=== PATIENT | female | born 1970 | race Hispanic/Latino ===

== ENCOUNTER → 2019-11-09 | Day surgery (SDC) | payer MEDICARE, OTHER ==
[~2019-11-09] MED LIST: CALCIUM ACETAT667 M1 PO; CITALOPRAM HBR20 MG PO; CRESTOR10 MG PO; FENTANYL CITRATE/PF 100MCG/2 ML INJ ONE; FERROUS SULFAT325 M1 PO; FUROSEMIDE40 MG PO; GABAPENTIN300 MG PO; LEVOTHYROXINE50 MCG PO; LEVOTHYROXINE75 MCG PO; MIDAZOLAM HCL 2 MG/2 ML VIAL ONE; NOVOLOG MI100 UNIT/1 SC; PROPOFOL IV EMULSION 10 MG/ML 20 ML VIAL ONE; SODIUM CHLORIDE 0.9% 500ML 500 ML ONE; TRADJENTA5 MG PO
[2019-11-09 14:55] VITALS: BP 110/56
== END | disposition home or self-care (01) ==
LOC: OR 10:57
PROVIDERS: ATTEND Internal Medicine Gastroenterology
DX: K29.70 Gastritis, unspecified, without bleeding (principal); D12.8 Benign neoplasm of rectum; K29.80 Duodenitis without bleeding; K44.9 Diaphragmatic hernia without obstruction or gangrene; K64.8 Other hemorrhoids; D50.9 Iron deficiency anemia, unspecified; I10 Essential (primary) hypertension; E11.9 Type 2 diabetes mellitus without complications; E03.9 Hypothyroidism, unspecified; Z01.810 Encounter for preprocedural cardiovascular examination; Z01.812 Encounter for preprocedural laboratory examination; Z11.59 Encounter for screening for other viral diseases; Z79.4 Long term (current) use of insulin
CPT/HCPCS: 36415; 43239; 45384; 82948; 84132; 88305; 88312; 93005; J2250; J2704; J3010; J7040; U0002; 45378

== ENCOUNTER 2021-07-31 12:40 | Inpatient (IN) | payer MEDICARE, OTHER ==
[2021-07-31] VITALS (17 sets, daily range): BP systolic 65–148; BP diastolic 20–75
[~2021-07-31] VITALS: Ht 165.1 cm; Wt 130.2 kg
[~2021-07-31 12:40] MED LIST changes: -FENTANYL CITRATE/PF 100MCG/2 ML INJ ONE; -MIDAZOLAM HCL 2 MG/2 ML VIAL ONE; -PROPOFOL IV EMULSION 10 MG/ML 20 ML VIAL ONE; -SODIUM CHLORIDE 0.9% 500ML 500 ML ONE
[2021-07-31] MEDS ORDERED: SODIUM CHLORIDE 0.9% 1000ML 2,000 ML ONE (13:00)
[2021-07-31] MEDS ORDERED: SODIUM CHLORIDE 0.9% 1000ML 1,000 ML IV STA ×3 (13:15→14:17)
[2021-07-31] MEDS ORDERED: ONDANSETRON HCL INJ 2MG/ML 2ML 2 MG/ML VIAL IV STA (13:15)
[2021-07-31] MEDS ORDERED: ONDANSETRON HCL INJ 2MG/ML 2ML 2 MG/ML VIAL ONE (13:18)
[2021-07-31 14:08] LABS: ALBUMIN 3.4 g/dL (3.5-5.0); ALBUMIN/GLOBULIN RATIO 0.6 (0.8-2.0); ANION GAP 20.7 mmol/L (8-16); CALCIUM 9.2 mg/dL (8.4-10.2); CREATININE, SERUM 13.97 mg/dL (0.57-1.11); POTASSIUM 4.7 mmol/L (3.5-5.1)
[2021-07-31 14:19] LABS: BASOPHILS # (AUTO) 0.1 (0.0-0.1); BASOPHILS % 0.7 % (0.0-1.0); EOSINOPHILS # (AUTO) 0.4 (0.0-0.4); EOSINOPHILS % 3.9 % (0.0-6.0); HEMATOCRIT 39.8 % (34.2-44.1); HEMOGLOBIN 12.8 g/dL (12.0-16.0); LYMPHOCYTES # (AUTO) 1.3 (1.0-3.2); MEAN CORPUSCULAR HGB CONC 32.2 g/dL (31-35); MEAN CORPUSCULAR VOLUME 108.7 fL (81-99); MONOCYTES # (AUTO) 0.6 (0.2-0.8); MONOCYTES % 6.3 % (4.4-11.3); NEUTROPHILS # (AUTO) 7.6 (2.1-6.9); NEUTROPHILS % 74.4 % (38.7-80.0); PLATELET COUNT 266 x10e3/uL (140-360); RED BLOOD COUNT 3.66 x10e6/uL (3.6-5.1); RED CELL DISTRIBUTION WIDTH 16.8 % (11.7-14.4)
[2021-07-31] MEDS ORDERED: ASPIRIN 81 MG CHEW TAB PO ONE (15:15)
[2021-07-31] MEDS ORDERED: SODIUM CHLORIDE 0.9% 500ML 500 ML IV ONE (17:15)
[2021-07-31] MEDS ORDERED: NOREPINEPHRINE 8 MG/D5W 250 ML 250 ML IV SCH (17:15)
[2021-07-31] MEDS ORDERED: NOREPINEPHRINE 8 MG/D5W 250 ML 250 ML ONE (17:33)
[2021-07-31] MEDS ORDERED: IOPAMIDOL 370 MG/ML 100 ML INFUS..BTL INJ ONE (18:07)
[2021-07-31] MEDS ORDERED: DEXTROSE 50% SYRINGE 50 ML IV PRN (19:45)
[2021-07-31] MEDS ORDERED: VASOPRESSIN 60 UNIT in DEXTROSE 5% 50ML 57 ML IV PRN (19:45)
[2021-07-31 21:32] LABS: CREATINE KINASE MB 6.2 ng/mL (0-5.0)
[2021-07-31] MEDS ORDERED: SODIUM CHLORIDE 0.9% 250ML 250 ML ONE (21:49)
[2021-07-31] MEDS: INSULIN GLARGINE 100 UNITS/ML VIAL SQ SCH (22:00)
[2021-07-31] MEDS: INSULIN REGULAR, HUMAN 100 UNIT/1 ML SQ SCH (22:01)
[2021-07-31] MEDS: SIMVASTATIN 20 MG TAB PO SCH (22:01)
[2021-07-31] MEDS: GABAPENTIN 300 MG CAP PO SCH (22:01)
[2021-08-01] VITALS (67 sets, daily range): BP systolic 65–143; BP diastolic 36–115
[2021-08-01] MEDS ORDERED: Vancomycin IV 1 GM in SODIUM CHLORIDE 0.9% 250ML 250 ML IV STA (00:26)
[2021-08-01 05:20] LABS: BASOPHILS % 0.2 % (0.0-1.0); EOSINOPHILS # (AUTO) 0.1 (0.0-0.4); EOSINOPHILS % 0.7 % (0.0-6.0); HEMOGLOBIN 10.6 g/dL (12.0-16.0); LYMPHOCYTES # (AUTO) 1.5 (1.0-3.2); LYMPHOCYTES % 9.6 % (18.0-39.1); MEAN CORPUSCULAR HEMOGLOBIN 35.1 pg (28-32); MEAN CORPUSCULAR HGB CONC 32.1 g/dL (31-35); MEAN CORPUSCULAR VOLUME 109.3 fL (81-99); MONOCYTES # (AUTO) 1.2 (0.2-0.8); MONOCYTES % 8.1 % (4.4-11.3); NEUTROPHILS # (AUTO) 12.3 (2.1-6.9); NEUTROPHILS % 80.4 % (38.7-80.0); PLATELET COUNT 215 x10e3/uL (140-360); RED BLOOD COUNT 3.02 x10e6/uL (3.6-5.1)
[2021-08-01 05:56] LABS: ANION GAP 17.6 mmol/L (8-16); CALCIUM 7.7 mg/dL (8.4-10.2); CREATININE, SERUM 13.79 mg/dL (0.57-1.11); POTASSIUM 3.6 mmol/L (3.5-5.1)
[2021-08-01] MEDS: INSULIN REGULAR, HUMAN 100 UNIT/1 ML SQ SCH ×4 (07:30→20:50)
[2021-08-01 07:31] LABS: CREATINE KINASE MB 8.7 ng/mL (0-5.0)
[2021-08-01] MEDS: CALCIUM ACETATE 667 MG GELCAP PO SCH ×3 (08:00→16:20)
[2021-08-01] MEDS: FERROUS SULFATE 325 MG TAB PO SCH ×2 (09:00→16:20)
[2021-08-01] MEDS: LEVOTHYROXINE SODIUM 50 MCG TAB PO SCH (10:05)
[2021-08-01] MEDS ORDERED: HYDROCODONE/APAP 7.5MG-325MG 1 EA TAB PO PRN (10:15)
[2021-08-01 11:42] LABS: CHOL/HDL RATIO 4.1 (3.0-3.6)
[2021-08-01] MEDS: FLUDROCORTISONE ACETATE 0.1 MG TAB PO SCH (11:48)
[2021-08-01] MEDS: MIDODRINE HCL 5 MG TABLET PO SCH ×2 (11:49→16:00)
[2021-08-01 12:45] LABS: BODY FLUID APPEARANCE SL.CLOUDY; BODY FLUID COLOR STRAW; BODY FLUID TYPE PERITONEAL; RBC,BODY FLUID 0 cells/uL; WBC,BODY FLUID 14 cells/uL
[2021-08-01 12:56] LABS: LYMPHOCYTES,BODY FLUID 6 %; MONO/MACROPHG,BODY FLUID 84 %; NEUTROPHILS,BODY FLUID 10 %
[2021-08-01 12:59] LABS: EOSINOPHILS % (MANUAL) 1 % (0-7); LYMPHOCYTES % (MANUAL) 3 % (19-48); MONOCYTES % (MANUAL) 6 % (3.4-9.0); NEUTROPHILS % (MANUAL) 90 % (40-74)
[2021-08-01 13:00] LABS: PLATELET ESTIMATE ADEQUATE; PLATELET MORPHOLOGY COMMENT NORMAL; RBC MORPHOLOGY COMMENT NORMAL
[2021-08-01 13:01] LABS: POLYCHROMASIA FEW
[2021-08-01] MEDS: VASOPRESSIN 60 UNIT in DEXTROSE 5% 50ML 57 ML IV SCH (15:45)
[2021-08-01 16:29] LABS: CREATINE KINASE MB 8.6 ng/mL (0-5.0)
[2021-08-01] MEDS: SIMVASTATIN 20 MG TAB PO SCH (20:49)
[2021-08-01] MEDS: GABAPENTIN 300 MG CAP PO SCH (20:49)
[2021-08-01] MEDS: INSULIN GLARGINE 100 UNITS/ML VIAL SQ SCH (20:50)
[2021-08-02] VITALS (30 sets, daily range): BP systolic 82–157; BP diastolic 33–90
[2021-08-02 02:30] LABS: % IRON SATURATION 9 % (15-50); IRON 23 ug/dL (50-170); TOTAL IRON BINDING CAPACITY 258 ug/dL (261-478); TRANSFERRIN 184 mg/dL (180-382)
[2021-08-02 05:02] LABS: BASOPHILS % 0.3 % (0.0-1.0); EOSINOPHILS # (AUTO) 0.5 (0.0-0.4); EOSINOPHILS % 3.6 % (0.0-6.0); HEMOGLOBIN 9.6 g/dL (12.0-16.0); LYMPHOCYTES # (AUTO) 1.7 (1.0-3.2); LYMPHOCYTES % 12.3 % (18.0-39.1); MEAN CORPUSCULAR HEMOGLOBIN 34.7 pg (28-32); MEAN CORPUSCULAR VOLUME 108.3 fL (81-99); MONOCYTES # (AUTO) 1.1 (0.2-0.8); MONOCYTES % 8.2 % (4.4-11.3); NEUTROPHILS % 74.9 % (38.7-80.0); PLATELET COUNT 211 x10e3/uL (140-360); RED BLOOD COUNT 2.77 x10e6/uL (3.6-5.1); RED CELL DISTRIBUTION WIDTH 16.3 % (11.7-14.4)
[2021-08-02 05:33] LABS: ALBUMIN 2.3 g/dL (3.5-5.0); ALBUMIN/GLOBULIN RATIO 0.6 (0.8-2.0); ANION GAP 21.7 mmol/L (8-16); CALCIUM 7.3 mg/dL (8.4-10.2); CREATININE, SERUM 14.22 mg/dL (0.57-1.11); POTASSIUM 3.7 mmol/L (3.5-5.1)
[2021-08-02] MEDS: INSULIN REGULAR, HUMAN 100 UNIT/1 ML SQ SCH ×4 (07:30→21:09)
[2021-08-02] MEDS: CALCIUM ACETATE 667 MG GELCAP PO SCH ×3 (08:00→17:00)
[2021-08-02] MEDS: MIDODRINE HCL 5 MG TABLET PO SCH ×3 (08:00→16:00)
[2021-08-02] MEDS: LEVOTHYROXINE SODIUM 50 MCG TAB PO SCH (08:28)
[2021-08-02] MEDS: FLUDROCORTISONE ACETATE 0.1 MG TAB PO SCH (08:29)
[2021-08-02] MEDS: FERROUS SULFATE 325 MG TAB PO SCH ×2 (08:29→17:00)
[2021-08-02] MEDS: VASOPRESSIN 60 UNIT in DEXTROSE 5% 50ML 57 ML IV SCH (15:45)
[2021-08-02] MEDS ORDERED: ONDANSETRON HCL INJ 2MG/ML 2ML 2 MG/ML VIAL ONE (19:17)
[2021-08-02] MEDS: ONDANSETRON HCL INJ 2MG/ML 2ML 2 MG/ML VIAL IV PRN (19:21)
[2021-08-02] MEDS: GABAPENTIN 300 MG CAP PO SCH (21:07)
[2021-08-02] MEDS: SIMVASTATIN 20 MG TAB PO SCH (21:07)
[2021-08-02] MEDS: INSULIN GLARGINE 100 UNITS/ML VIAL SQ SCH (21:12)
[2021-08-03] VITALS (13 sets, daily range): BP systolic 120–166; BP diastolic 63–88
[2021-08-03] MEDS: INSULIN REGULAR, HUMAN 100 UNIT/1 ML SQ SCH ×4 (07:30→21:00)
[2021-08-03] MEDS: MIDODRINE HCL 5 MG TABLET PO SCH ×4 (07:46→16:57)
[2021-08-03] MEDS: LEVOTHYROXINE SODIUM 50 MCG TAB PO SCH (07:46)
[2021-08-03] MEDS: CALCIUM ACETATE 667 MG GELCAP PO SCH ×3 (08:05→16:57)
[2021-08-03] MEDS: FLUDROCORTISONE ACETATE 0.1 MG TAB PO SCH (08:05)
[2021-08-03] MEDS: ONDANSETRON HCL INJ 2MG/ML 2ML 2 MG/ML VIAL IV PRN (08:05)
[2021-08-03] MEDS: FERROUS SULFATE 325 MG TAB PO SCH ×2 (08:05→16:57)
[2021-08-03 08:28] LABS: BASOPHILS # (AUTO) 0.1 (0.0-0.1); BASOPHILS % 0.4 % (0.0-1.0); EOSINOPHILS # (AUTO) 0.5 (0.0-0.4); EOSINOPHILS % 3.6 % (0.0-6.0); HEMATOCRIT 29.1 % (34.2-44.1); HEMOGLOBIN 9.5 g/dL (12.0-16.0); LYMPHOCYTES # (AUTO) 1.5 (1.0-3.2); LYMPHOCYTES % 11.2 % (18.0-39.1); MEAN CORPUSCULAR HEMOGLOBIN 34.5 pg (28-32); MEAN CORPUSCULAR HGB CONC 32.6 g/dL (31-35); MEAN CORPUSCULAR VOLUME 105.8 fL (81-99); MONOCYTES # (AUTO) 0.8 (0.2-0.8); NEUTROPHILS # (AUTO) 10.5 (2.1-6.9); NEUTROPHILS % 77.9 % (38.7-80.0); PLATELET COUNT 217 x10e3/uL (140-360); RED BLOOD COUNT 2.75 x10e6/uL (3.6-5.1); RED CELL DISTRIBUTION WIDTH 16.4 % (11.7-14.4)
[2021-08-03] MEDS ORDERED: METOCLOPRAMIDE HCL 10 MG/2ML VIAL IV SCH (09:00)
[2021-08-03] MEDS ORDERED: SODIUM CHLORIDE 0.9% 250ML 250 ML ONE (16:41)
[2021-08-03] MEDS: SODIUM BICARBONATE 650 MG TAB PO SCH (16:57)
[2021-08-03] MEDS: METOCLOPRAMIDE HCL 10 MG/2ML VIAL IV SCH (16:57)
[2021-08-03] MEDS: SIMVASTATIN 20 MG TAB PO SCH (20:51)
[2021-08-03] MEDS: GABAPENTIN 300 MG CAP PO SCH (20:51)
[2021-08-03] MEDS: INSULIN GLARGINE 100 UNITS/ML VIAL SQ SCH (21:00)
[2021-08-04] VITALS: BP 128/68
[2021-08-04] MEDS: METOCLOPRAMIDE HCL 10 MG/2ML VIAL IV SCH ×3 (01:40→11:55)
[2021-08-04 04:00] VITALS: BP 139/74
[2021-08-04] MEDS: INSULIN REGULAR, HUMAN 100 UNIT/1 ML SQ SCH ×2 (07:30→11:30)
[2021-08-04] MEDS: LEVOTHYROXINE SODIUM 50 MCG TAB PO SCH (07:30)
[2021-08-04 07:52] VITALS: BP 122/72
[2021-08-04] MEDS: CALCIUM ACETATE 667 MG GELCAP PO SCH ×2 (08:00→11:48)
[2021-08-04 08:33] VITALS: BP 122/72
[2021-08-04] MEDS: SODIUM BICARBONATE 650 MG TAB PO SCH (09:00)
[2021-08-04] MEDS: FERROUS SULFATE 325 MG TAB PO SCH (09:00)
[2021-08-04 11:48] VITALS: BP 115/58
[2021-08-04] MEDS: MIDODRINE HCL 5 MG TABLET PO SCH (11:48)
[2021-08-04] MEDS: FLUDROCORTISONE ACETATE 0.1 MG TAB PO SCH (14:40)
[2021-08-04] MEDS ORDERED: MIDODRINE HCL5 MG PO (15:03)
[2021-08-04] MEDS ORDERED: FLORINEF ACETA0.1 MG PO (15:03)
[2021-08-04] MEDS ORDERED: Insulin Glargine SQ (15:03)
[2021-08-04] MEDS ORDERED: SODIUM BICARBO650 MG PO (15:03)
[2021-08-04] MEDS ORDERED: CEPHALEXIN250 MG PO (15:03)
[2021-08-04] MEDS ORDERED: PANTOPRAZOLE SO40 MG PO (15:03)
[2021-08-04 15:30] VITALS: BP 107/65
== END 2021-08-04 15:56 | disposition home or self-care (01) | DRG 871 ==
LOC: ER 12:45 → ERHOLD 15:08 → ICU 17:51 → MED/SURG3 08-03 16:21
PROVIDERS: ADMIT Internal Medicine; ATTEND Internal Medicine
PROC: 02HV33Z Insertion of Infusion Device into Superior Vena Cava, Percutaneous Approach (ICD-10-PCS; principal; 2021-07-31)
PROC: B548ZZA Ultrasonography of Superior Vena Cava, Guidance (ICD-10-PCS; 2021-07-31)
PROC: 3E043XZ Introduction of Vasopressor into Central Vein, Percutaneous Approach (ICD-10-PCS; 2021-07-31)
PROC: 3E1M39Z Irrigation of Peritoneal Cavity using Dialysate, Percutaneous Approach (ICD-10-PCS; 2021-08-01)
DX: A41.9 Sepsis, unspecified organism (principal); N18.6 End stage renal disease; R65.21 Severe sepsis with septic shock; I12.0 Hypertensive chronic kidney disease with stage 5 chronic kidney disease or end stage renal disease; Z68.42 Body mass index [BMI] 45.0-49.9, adult; E87.2 Acidosis; E11.43 Type 2 diabetes mellitus with diabetic autonomic (poly)neuropathy; E11.22 Type 2 diabetes mellitus with diabetic chronic kidney disease; E66.01 Morbid (severe) obesity due to excess calories; E03.9 Hypothyroidism, unspecified; K43.9 Ventral hernia without obstruction or gangrene; K31.84 Gastroparesis; Z99.2 Dependence on renal dialysis; Z90.49 Acquired absence of other specified parts of digestive tract; Z86.16 Personal history of COVID-19; Z79.4 Long term (current) use of insulin; Z20.822 Contact with and (suspected) exposure to COVID-19
CPT/HCPCS: 36415; 71045; 74177; 78264; 80048; 80053; 80061; 82533; 82550; 82553; 82607; 82746; 82948; 83036; 83540; 83605; 83690; 84466; 84484; 84702; 85025; 85045; 87040; 87070; 87205; 89051; 93005; 93306; 94799; 96372; 99284; A9541; J0692; J1815; J1817; J2405; J2765; J3370; J7030; J7050; Q9967; U0002